=== PATIENT | male | born 1945 | race Caucasian/White ===

== ENCOUNTER 2020-01-20 08:13 | Emergency (ER) | payer OTHER ==
[~2020-01-20] VITALS: Ht 182.9 cm; Wt 119.8 kg
--- NOTE | ~2020-01-20 | EMS ---
[address] [address] EMS Patient Care Report Name: BECCA MENDOZA [id number] Admission: 01/20/20 Attend Phys: Discharge: Date of : 47 Report #: [id number] THIS REPORT FOR: //name// Report Transmitted: 01/20/2020 08:02 EMS Care Summary [facility] [place] Incident [id number] @ 01/20/2020 07:40 Incident Location [address] [place] [address] Patient BECCA MENDOZA Male, 74 Years 1945 Patient Address [address] [place] [address] Patient History Tobacco use,Chronic Obstructive Pulmonary Disease (COPD),Hyperlipidemia, Patient Allergies No known allergies, Patient Medications , Chief Complaint Pain Disposition Transported No Lights/[place] Dispatch Reason Falls Transported To [facility] Narrative Dispatched to address noted for a fall. [facility] en route at time noted. Arrived and found patient laying supine on the pavement sidewalk. Bystanders where around him. Patient was alert and oriented and had blood noted on his face, coming from his nose. Patient stated he was walking faster that he normally [address] [address] EMS Patient Care Report Name: BECCA MENDOZA Room: [facility]#: [id number] Admission: 01/20/20 Attend Phys: Discharge: Date of : 47 Report #: [id number] does in order to sit down and he tripped and fell after becoming dizzy. Patient then struck his left side and face and stated he did have a loss of consciousness. Patient also complained of pain on his left shoulder and there was no obvious trauma noted. Patient denied blood thinners or neck and back pain. Patient was sat up and then moved to stretcher. Patient agreed to be transported to the closest available hospital which was [facility]. [facility] was on high volume. Patient was buckled in and taken to ambulance. Once in ambulance, secondary trauma survey did not reveal any new findings. Left arm was placed in a sling for comfort and no IV could be obtained due to the size of the ambulance and patients pain. Vitals where taken as noted with 12 lead ECG. While en route, vitals where taken again and radio report was given at time noted. Arrived and took patient to room 3. Patient was moved to bed and RN was given verbal report. RN signed for patient and patient signed for self. END REPORT EMT-P Caleb Aviles Initial Vitals @07:44Pain: 10/28, @07:58Pain: 10/28, @07:51SpO2: 95, @07:52SpO2: 95, @07:56SpO2: 95, @08:01SpO2: 94, @08:05SpO2: 92, @08:06SpO2: 93, @07:55 @07:50P: 103,R: 14,BP: 135/94,Revised Trauma: 8, @08:05P: 134,R: 14,BP: 121/87,Revised Trauma: 8, @07:50GCS: 15, @08:05GCS: 15, @07:44 @07:56Glucose: 133, Assessments @07:44MENTAL:SKIN:HEENT:LUNG SOUNDS:ABDOMEN:PELVIS//GI:EXTREMITIES:PULSE:NEURO: Impression Syncope / Fainting Procedures @07:58Application of dressing, pressure (procedure)Response: UnchangedSucceeded@07:56Splint Fx/Disloc.Response: UnchangedSucceeded@07:5512-Lead ECGResponse: UnchangedSucceeded@08:03Checking of splint (procedure)Response: [place] [address] EMS Patient Care Report Name: BECCA MENDOZA Room: [facility]#: [id number] Admission: 01/20/20 Attend Phys: Discharge: Date of : 47 Report #: [id number] 07:39,Call Received 07:39,Dispatch Notified 07:39,Psap Call 07:40,Dispatched 07:40,En Route 07:41,On Scene 07:44,At Patient 07:44,BP: / M,PULSE: ,RR: R,SPO2: Ox,ETCO2: ,BG: ,PAIN: 8,GCS: , 07:44,BP: / M,PULSE: ,RR: R,SPO2: Ox,ETCO2: ,BG: ,PAIN: ,GCS: , 07:50,BP: 135/94 M,PULSE: 103,RR: 14 R,SPO2: Ox,ETCO2: ,BG: ,PAIN: ,GCS: , 07:50,BP: / M,PULSE: ,RR: R,SPO2: Ox,ETCO2: ,BG: ,PAIN: ,GCS: 15, 07:51,BP: / M,PULSE: ,RR: R,SPO2: 95 Ox,ETCO2: ,BG: ,PAIN: ,GCS: , 07:52,BP: / M,PULSE: ,RR: R,SPO2: 95 Ox,ETCO2: ,BG: ,PAIN: ,GCS: , 07:55,12-Lead ECG,Response: UnchangedSucceeded, 07:55,BP: / M,PULSE: ,RR: R,SPO2: Ox,ETCO2: ,BG: ,PAIN: ,GCS: , 07:56,BP: / M,PULSE: ,RR: R,SPO2: 95 Ox,ETCO2: ,BG: ,PAIN: ,GCS: , 07:56,Splint Fx/Disloc.,Response: UnchangedSucceeded, 07:56,BP: / M,PULSE: ,RR: R,SPO2: Ox,ETCO2: ,B,PAIN: ,GCS: , 07:58,Depart Scene 07:58,Application of dressing, pressure (procedure),Response: UnchangedSucceeded, 07:58,BP: / M,PULSE: ,RR: R,SPO2: Ox,ETCO2: ,BG: ,PAIN: 8,GCS: , 08:01,BP: / M,PULSE: ,RR: R,SPO2: 94 Ox,ETCO2: ,BG: ,PAIN: ,GCS: , 08:03,Checking of splint (procedure),Response: UnchangedSucceeded, 08:05,BP: / M,PULSE: ,RR: R,SPO2: 92 Ox,ETCO2: ,BG: ,PAIN: ,GCS: , 08:05,BP: 121/87 M,PULSE: 134,RR: 14 R,SPO2: Ox,ETCO2: ,BG: ,PAIN: ,GCS: , 08:05,BP: / M,PULSE: ,RR: R,SPO2: Ox,ETCO2: ,BG: ,PAIN: ,GCS: 15, 08:06,BP: / M,PULSE: ,RR: R,SPO2: 93 Ox,ETCO2: ,BG: ,PAIN: ,GCS: , 08:10,At Destination 08:27,Call Closed Disclaimer v1.1 Copyright 2020 [employer] This EMS Care Summary contains data elements from the applicable legal record (which may be displayed differently). It is designed to provide pertinent information for the following purposes: continuity of care, clinical quality, and state data reporting. The complete legal record is available to ED staff and administrators of the receiving hospital in [employer]'s Patient Tracker. All data is provided "as is."
[2020-01-20 09:35] LABS: ABSOLUTE BASOPHILS 0.1 thou/uL (0.0-0.2); ABSOLUTE EOSINOPHILS 0.2 thou/uL (0.0-0.7); ABSOLUTE LYMPHOCYTES 0.7 thou/uL (0.8-5.3); ABSOLUTE MONOCYTES 0.8 thou/uL (0.0-1.2); ABSOLUTE NEUTROPHILS 7.2 thou/uL (1.6-8.1); BASOPHILS 0.9 %; EOSINOPHILS 1.9 %; HEMATOCRIT 47.7 % (42.0-52.0); LYMPHOCYTES 7.4 %; MCHC 33.5 g/dL (28.0-37.0); MCV 86.4 fL (80.0-100.0); MONOCYTES 8.8 %; MPV 7.4 fl. (7.2-11.1); NUCLEATED RBCS 0 /100WBC; PLATELET COUNT* 242 thou/uL (150-400); RBC 5.52 mil/uL (4.50-6.00); RDW-CV 14.4 % (10.5-14.5); WBC 8.9 thou/uL (4.0-11.0)
[2020-01-20 09:44] LABS: CALCIUM 8.4 mg/dL (8.5-10.1); CREATININE 1.2 mg/dL (0.6-1.3); POTASSIUM 3.7 mmol/L (3.5-5.1)
[2020-01-20 09:47] LABS: APTT 22.7 Seconds (25.0-31.3); INR 1.1; PROTIME 11.1 Seconds (9.20-11.50)
[2020-01-20 09:49] LABS: ALBUMIN 3.7 g/dL (3.4-5.0); TOTAL BILIRUBIN 1.4 mg/dL (<0.1-1.0); TOTAL PROTEIN 7.2 g/dL (6.4-8.2)
[2020-01-20 11:05] VITALS: BP 139/97
--- NOTE | 2020-01-21 10:17 | EKG ---
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1945 Requested By: Juancarlos Noyola Order Number: [id number] MD: Jim Levin Measurements Intervals [place] Rate: 97 P: 51 [place]: 189 QRS: -53 QRSD: 101 T: 45 QT: 352 QTc: 447 Interpretive Statements Sinus rhythm Incomplete RBBB and LAFB Low voltage, precordial leads Abnormal R-wave progression, early transition Consider anterior infarct No previous ECG available for comparison Electronically Signed On 01-21-2020 10:17:05 [employer] by Jim Levin [email or web address] <ELECTRONICALLY SIGNED> By: Jim Levin MD, [facility] 01/21/20 1017 [id number] 6 Jim Levin MD, [facility] /EPI
== END 2020-01-20 11:06 | disposition home or self-care (01) ==
LOC: M.ERS 08:13
PROVIDERS: Family Medicine
DX: S40.012A Contusion of left shoulder, initial encounter (principal); S00.81XA Abrasion of other part of head, initial encounter; S00.31XA Abrasion of nose, initial encounter; S60.512A Abrasion of left hand, initial encounter; Z88.5 Allergy status to narcotic agent; W18.39XA Other fall on same level, initial encounter; Y93.89 Activity, other specified; Y92.89 Other specified places as the place of occurrence of the external cause; Y99.8 Other external cause status